=== PATIENT | male | born 1985 | race Caucasian/White ===

== ENCOUNTER → 2019-06-11 15:57 | Outpatient (ROUT) | payer BC, OTHER, SELFPAY ==
[2019-06-11 16:30] LABS: Influenza A - CEPHEID Flu A NEGATIVE (NEGATIVE); Influenza B - CEPHEID Flu B NEGATIVE (NEGATIVE)
== END ==
PROVIDERS: Family Provider Family Medicine; PCP Family Medicine; Visit Provider Family Medicine
DX: R50.9 Fever, unspecified (principal); R05 Cough
CPT/HCPCS: 87502

== ENCOUNTER → 2021-06-16 09:06 | Outpatient (CLI) | payer OTHER, SELFPAY ==
--- NOTE | 2021-06-16 | DI.CT.S_ITS ---
PROCEDURE: CT ABDOMEN W CON INDICATIONS: Unspecified abd pain TECHNIQUE: After the administration of oral and intravenous contrast, axial sections acquired from the diaphragm to the iliac crests. Coronal and sagittal reformats were performed. For radiation dose reduction, the following was used: automated exposure control, adjustment of mA and/or kV according to patient size. COMPARISON: None. FINDINGS: Image quality: Excellent. Lung bases: Unremarkable. Heart: No significant findings. Liver: No focal lesion. Gallbladder: Not distended. No calcified gallstones. Biliary ducts: Not dilated. Pancreas: No peripancreatic fluid collection. Spleen: No splenomegaly. Adrenal Glands: No nodule. Kidneys and Ureters: No hydronephrosis. Stomach and Bowel: Stomach, small bowel loops, and colon are unremarkable. Peritoneum: No abnormal intraperitoneal fluid. No free air. Ventral Wall: No hernia. Abdominal Nodes: No retroperitoneal or mesenteric adenopathy by size criteria. Vessels: Aorta and inferior vena cava are normal in size. Bones: No suspicious lesion. IMPRESSION: No significant abnormality identified. Dictated by: Ash Sanders M.D. on 06/16/2021 at 10:52 Approved by: Ash Sanders M.D. on 06/16/2021 at 10:55
== END ==
PROVIDERS: Family Provider Family Medicine; PCP Family Medicine; Referring Provider Family Medicine; Visit Provider Family Medicine
DX: R10.9 Unspecified abdominal pain (principal)
CPT/HCPCS: 74160

== ENCOUNTER 2022-12-30 05:47 | Emergency (ER) | payer OTHER, SELFPAY ==
[2022-12-30] VITALS (9 sets, daily range): BP systolic 139–166; BP diastolic 100–111; PULSE 82–105; RESP 16; TEMP 35.7; O2SAT 97–100; BMI 21.1
--- NOTE | 2022-12-30 05:59 | ED_ITS ---
HPI - General Adult <Vale Bee MD - Last Filed: 12/30/22 18:05> General Chief complaint: Extremity Problem,Nontraumatic Stated complaint: painful muscle contractions whole body 45 min Time Seen by Provider: 12/30/22 05:59 History of Present Illness HPI narrative: 37-year-old gentleman with no chronic medical history presents complaining of severe back pain with spasm now radiating down his legs causing him to be significantly anxious, hyperventilating and complaining of muscle spasm all over. He states that he works nights for the [employer]. Three days ago he was shoveling some asphalt and felt a slight twinge in his lower thoracic spine. He has been having mild pain and has been taking ibuprofen Tylenol combination with only modest relief. He was in the bathtub this evening in his he went to get out of the bath tub the pain became worse spasm significantly and then began radiating down both legs. He was able to get into his car and get to the emergency department for further evaluation. There is no specific trauma. on arrival he is significantly anxious and having difficulty explaining his overall symptoms. Related Data Previous Rx's Medication Instructions Recorded cyclobenzaprine 10 mg tablet 10 mg PO TID PRN muscle spasm #14 12/30/22 tabs hydrocodone 5 mg-acetaminophen 325 1 tab PO Q8H PRN pain #10 tabs 12/30/22 mg tablet Allergies Allergy/AdvReac Type Severity Reaction Status Date / Time Amoxicillin Allergy Unknown Uncoded 07/24/17 12:57 Review of Systems <Vale Bee MD - Last Filed: 12/30/22 18:05> Review of Systems Narrative: Pertinent positive and negative findings as per HPI Exam <Vale Bee MD - Last Filed: 12/30/22 18:05> Initial Vital Signs Initial Vital Signs: Vital Signs Temperature 96.3 F L 12/30/22 05:59 Pulse Rate 100 H 12/30/22 05:59 Respiratory Rate 16 12/30/22 05:59 Blood Pressure 143/106 H 12/30/22 05:59 Pulse Oximetry 100 12/30/22 05:59 Oxygen Delivery Method Room Air 12/30/22 05:59 General: Anxious, hyperventilating with carpal pedal spasms. He has some difficulty explaining his symptoms due to his anxiety and pain secondary to muscle spasms Well-nourished well-developed HEENT: Moist mucous membranes, normal sclera with reactive pupils, Respiratory: Lungs are clear to auscultation, no wheezing no rales no rhonchi. Full and symmetrical air movement Cardiac: Regular rate and rhythm no murmurs no bruits Abdomen: Soft, nontender, good bowel tones, no flank pain Spine: He has muscle spasm from approximately T9-L1 on the right side with no midline thoracic or lumbar pain to palpation. There is no skin abnormalities. He has subjective muscle spasms into his legs that I do not appreciate on physical exam. Both legs have full sensation and pulses distally. He is able to do straight leg raise bilaterally without pain. Skin: Warm and dry, no rashes Neurologic: Grossly neurologically intact with no obvious asymmetries or abnormalities. Normal lower extremity reflexes bilaterally Extremities: Carpal pedal spasms with cool fingertips Psych: Anxious, frightened, in pain secondary to muscle spasm <Jatinder Cheng DO - Last Filed: 12/30/22 08:34> Initial Vital Signs Initial Vital Signs: Vital Signs Temperature 96.3 F L 12/30/22 05:59 Pulse Rate 100 H 12/30/22 05:59 Respiratory Rate 16 12/30/22 05:59 Blood Pressure 143/106 H 12/30/22 05:59 Pulse Oximetry 100 12/30/22 05:59 Oxygen Delivery Method Room Air 12/30/22 05:59 Course <Vale Bee MD - Last Filed: 12/30/22 18:05> Orders Ordered: Discontinued Medications Cyclobenzaprine HCl (Cyclobenzaprine 10 Mg Tablet) 10 mg PO NOW ONE Stop: 12/30/22 08:30 Last Admin: 12/30/22 08:33 Dose: 10 mg Documented By: Hydromorphone HCl (Hydromorphone 1 Mg Inj) 0.5 mg IV NOW ONE Stop: 12/30/22 06:09 Last Admin: 12/30/22 06:15 Dose: 0.5 mg Documented By: YOHAN Sodium Chloride (Normal Saline 0.9%) 1,000 mls @ 1,000 mls/hr IV BOLUS ONE Stop: 12/30/22 07:47 Last Infusion: 12/30/22 08:45 Dose: 0 mls/hr Documented By: Admin: 12/30/22 06:56 Dose: 1,000 mls/hr Documented By: Ketorolac Tromethamine (Ketorolac 30 Mg/Ml Vial) 15 mg IV NOW ONE Stop: 12/30/22 06:09 Last Admin: 12/30/22 06:14 Dose: 15 mg Documented By: YOHAN Vital Signs Vital signs: Vital Signs - 8 hr 12/30/22 05:59 12/30/22 06:10 12/30/22 06:30 Temperature 96.3 F L Pulse Rate 100 H 89 105 H Respiratory Rate 16 Blood Pressure 143/106 H Pulse Oximetry 100 100 98 Oxygen Delivery Method Room Air 12/30/22 06:48 12/30/22 06:48 12/30/22 07:00 Temperature Pulse Rate 101 H Respiratory Rate Blood Pressure 140/100 H 139/102 H Pulse Oximetry 97 Oxygen Delivery Method 12/30/22 07:00 12/30/22 07:30 Temperature Pulse Rate 97 H 82 Respiratory Rate Blood Pressure Pulse Oximetry 99 98 Oxygen Delivery Method <Jatinder Cheng DO - Last Filed: 12/30/22 08:34> Orders Ordered: Discontinued Medications Cyclobenzaprine HCl (Cyclobenzaprine 10 Mg Tablet) 10 mg PO NOW ONE Stop: 12/30/22 08:30 Last Admin: 12/30/22 08:33 Dose: 10 mg Documented By: Hydromorphone HCl (Hydromorphone 1 Mg Inj) 0.5 mg IV NOW ONE Stop: 12/30/22 06:09 Last Admin: 12/30/22 06:15 Dose: 0.5 mg Documented By: YOHAN Sodium Chloride (Normal Saline 0.9%) 1,000 mls @ 1,000 mls/hr IV BOLUS ONE Stop: 12/30/22 07:47 Last Infusion: 12/30/22 08:45 Dose: 0 mls/hr Documented By: Admin: 12/30/22 06:56 Dose: 1,000 mls/hr Documented By: Ketorolac Tromethamine (Ketorolac 30 Mg/Ml Vial) 15 mg IV NOW ONE Stop: 12/30/22 06:09 Last Admin: 12/30/22 06:14 Dose: 15 mg Documented By: YOHAN Vital Signs Vital signs: Vital Signs - 8 hr 12/30/22 05:59 12/30/22 06:10 12/30/22 06:30 Temperature 96.3 F L Pulse Rate 100 H 89 105 H Respiratory Rate 16 Blood Pressure 143/106 H Pulse Oximetry 100 100 98 Oxygen Delivery Method Room Air 12/30/22 06:48 12/30/22 06:48 12/30/22 07:00 Temperature Pulse Rate 101 H Respiratory Rate Blood Pressure 140/100 H 139/102 H Pulse Oximetry 97 Oxygen Delivery Method 12/30/22 07:00 12/30/22 07:30 Temperature Pulse Rate 97 H 82 Respiratory Rate Blood Pressure Pulse Oximetry 99 98 Oxygen Delivery Method Medical Decision Making <Vale Bee MD - Last Filed: 12/30/22 18:05> Lab Data 12/30/22 06:00 12/30/22 06:00 Labs: Lab Results 12/30/22 12/30/22 Range/Units 06:00 06:00 WBC 9.4 (4.5-11.0) X10^3/uL RBC 6.30 H (4.5-5.9) X10^6/uL Hgb 17.9 H (13.5-17.5) g/dL Hct 52.9 (41-53) % MCV 83.9 (80-100) fL MCH 28.5 (26-34) PG MCHC 33.9 (30-36) % RDW 13.7 (11.6-14.8) % Plt Count 328 (150-400) X10^3/uL Neut % (Auto) 63.9 (50-75) % Lymph % (Auto) 23.7 L (25-40) % Anson % (Auto) 7.1 (3-14) % Eos % (Auto) 4.3 H (2-4) % Baso % (Auto) 1.0 (0-2) % Neut # (Auto) 6000 (2716-9368) /uL Lymph # (Auto) 2200 (4340-3643) /uL Anson # (Auto) 700 (0-900) /uL Eos # (Auto) 400 (0-450) /uL Baso # (Auto) 100 (0-100) /uL Sodium 139 (137-145) mmol/L Potassium 3.7 (3.4-5.1) mmol/L Chloride 98 (98-107) mmol/L Carbon Dioxide 23 (22-32) mmol/L BUN 21 H (9-20) mg/dL Creatinine 2.00 H (0.66-1.25) mg/dL Estimated GFR 44 L (>60) mL/min BUN/Creatinine Ratio 10.5 (6-22) Glucose 173 H (70-100) mg/dL Calcium 11.8 H (8.4-10.2) mg/dL Total Bilirubin 0.8 (0.2-1.3) mg/dL AST 37 (17-59) IU/L ALT 54 H (<50) IU/L Alkaline Phosphatase 81 (38-126) U/L Total Protein 10.5 H (6.3-8.2) g/dL Albumin 5.7 H (3.5-5.0) g/dL Globulin 4.8 H (1.7-4.1) g/dL Albumin/Globulin Ratio 1.2 (1.0-2.8) MDM Narrative Medical decision making narrative: CC: Muscle spasms and severe pain Complicating co-morbidities: Lower thoracic back strain worsening over the past 72 hours, significant anxiety. Data collected from: patient, significant other Medical records reviewed: Records from [facility] Emergency room visit in April of this year for chest pain and palpitations and subsequent cardiac outpatient follow-up are reviewed. Differential considered: Thoracic muscle spasm, anxiety, hyperventilation. He has no ?red flags? for epidural abscess, there has been no trauma to suggest suspect compression fracture or other bony injury Exam documented above, pertinent findings include: Significant improvement with application of a non-rebreather mask, no oxygen running. Muscle spasm paraspinous right lower thoracic area. Lab Test results independently reviewed as above. Pertinent findings: CBC shows a moderate elevation in H&H at 17.9 and 52.9 suggesting moderate hemo concentration (he does not smoke) or polycythemia Chemistries are notable for elevated creatinine at 2 with GFR at 44 slightly elevated glucose at 173 calcium is significantly elevated at 11.8, total protein albumin and globulin are all elevated Imaging studies CT abdomen with no acute process, masses no retroperitoneal bleeding no obvious kidney stones or renal abnormalities. Normal appendix Treatments: Non-rebreather mask used to help control his hyperventilation, parenteral Toradol and Dilaudid Discussion: Pleasant 37-year-old gentleman who has some significant muscle spasm right side thoracic likely from the shoveling asphalt that he had been doing almost 72 hours ago with increasing pain and spasm as he got out of his bathtub and obvious hyperventilation with carpal pedal spasm and worsening overall muscle spasm. During my initial exam a non-rebreather mask without oxygen is applied and helped significantly. The upper extremity muscle spasm and carpal pedal spasm resolved fairly quickly. He was given IV Toradol and half a dose of IV Dilaudid. Lives with significant abnormalities and concern for neoplasm or other adrenal mass or abnormality. Possible retroperitoneal bleeding or bleeding into mass is identified. Findings were reviewed with patient and his family he is agreeable to continued workup. He also points out that since his evaluation in April he is had consistently elevated heart rate via his fit bit consistently 90-120 even at rest. He has not been gaining or losing weight. He notes that his blood pressure has been elevated which is significantly unusual for him. When questioning possibility of dehydration he notes that he has been drinking large volumes of water including over the last 24 hours. Care is reviewed with Dr. Cheng at change of shift and he will assume care. Dr cheng: Received turned over. Review patient's history and physical exam. Performed my own independent focused examination. Patient has been hypertensive. His creatinine is also elevated. Heart rate has been anywhere from the upper 80s to the low 100s. He states that this heart rate issue is not necessarily new for him. He does not recollect any issues with his blood pressure his kidney function. The CT scan today shows no evidence of acute issues to include a pheochromocytoma. Had a discussion with the patient regarding all of this. Will have him contact his primary doctor to discuss further workup of his issues today. Will send home with a prescription for muscle relaxers and pain medication for symptomatic treatment. Patient is safe for discharge home. <Jatinder Cheng, DO - Last Filed: 12/30/22 08:34> Lab Data Lab results reviewed: Yes I reviewed the patient's lab results. Labs: Lab Results 12/30/22 12/30/22 Range/Units 06:00 06:00 WBC 9.4 (4.5-11.0) X10^3/uL RBC 6.30 H (4.5-5.9) X10^6/uL Hgb 17.9 H (13.5-17.5) g/dL Hct 52.9 (41-53) % MCV 83.9 (80-100) fL MCH 28.5 (26-34) PG MCHC 33.9 (30-36) % RDW 13.7 (11.6-14.8) % Plt Count 328 (150-400) X10^3/uL Neut % (Auto) 63.9 (50-75) % Lymph % (Auto) 23.7 L (25-40) % Anson % (Auto) 7.1 (3-14) % Eos % (Auto) 4.3 H (2-4) % Baso % (Auto) 1.0 (0-2) % Neut # (Auto) 6000 (5216-7382) /uL Lymph # (Auto) 2200 (7151-7422) /uL Anson # (Auto) 700 (0-900) /uL Eos # (Auto) 400 (0-450) /uL Baso # (Auto) 100 (0-100) /uL Sodium 139 (137-145) mmol/L Potassium 3.7 (3.4-5.1) mmol/L Chloride 98 (98-107) mmol/L Carbon Dioxide 23 (22-32) mmol/L BUN 21 H (9-20) mg/dL Creatinine 2.00 H (0.66-1.25) mg/dL Estimated GFR 44 L (>60) mL/min BUN/Creatinine Ratio 10.5 (6-22) Glucose 173 H (70-100) mg/dL Calcium 11.8 H (8.4-10.2) mg/dL Total Bilirubin 0.8 (0.2-1.3) mg/dL AST 37 (17-59) IU/L ALT 54 H (<50) IU/L Alkaline Phosphatase 81 (38-126) U/L Total Protein 10.5 H (6.3-8.2) g/dL Albumin 5.7 H (3.5-5.0) g/dL Globulin 4.8 H (1.7-4.1) g/dL Albumin/Globulin Ratio 1.2 (1.0-2.8) Imaging Data CT scan - abdomen/pelvis: Radiologist's Impression: PROCEDURE:? CT ABDOMEN PELVIS W CON ? INDICATIONS:? retroperitoneal pain, acute kidney injury, hypercalcemia, ? TECHNIQUE:? After the administration of intravenous contrast, axial sections acquired from the lung bases to the pubic symphysis.? Coronal and sagittal reformats were performed.? For radiation dose reduction, the following was used:? automated exposure control, adjustment of mA and/or kV according to patient size.? ? COMPARISON:? None. ? FINDINGS:? Image quality:? Excellent.? ? Lung bases:? Unremarkable. Heart:? No significant findings. ? ABDOMEN: Liver:? Unremarkable.? ? Gallbladder:? Unremarkable.? ? Biliary ducts:? Unremarkable.? ? Pancreas:? Unremarkable.? ? Spleen:? Unremarkable.? ? Adrenal Glands:? Unremarkable.? ? Kidneys and Ureters:? Unremarkable.? ? ? Stomach and Bowel:? Stomach, small bowel loops, and colon are unremarkable.? Normal appendix. Peritoneum:? No abnormal intraperitoneal fluid.? No free air.? ? Ventral Wall: ? No hernias.? Abdominal Nodes:? No retroperitoneal or mesenteric adenopathy by size criteria.? Vessels:? Aorta and inferior vena cava are normal in size.? ? PELVIS: Pelvic Organs:? Unremarkable.? ? Bladder:? Unremarkable.? ? Pelvic Nodes: No enlarged lymph nodes.? Miscellaneous: No hernias are seen. ? ? ? Bones:? Unremarkable.? IMPRESSION:? 1. No acute process. 2. Normal appendix.? MDM Narrative Medical decision making narrative: CC: Muscle spasms and severe pain Complicating co-morbidities: Lower thoracic back strain worsening over the past 72 hours, significant anxiety. Data collected from: patient, significant other Medical records reviewed: Records from [facility] Emergency room visit in April of this year for chest pain and palpitations and subsequent cardiac outpatient follow-up are reviewed. Differential considered: Thoracic muscle spasm, anxiety, hyperventilation. He has no ?red flags? for epidural abscess, there has been no trauma to suggest suspect compression fracture or other bony injury Exam documented above, pertinent findings include: Significant improvement with application of a non-rebreather mask, no oxygen running. Muscle spasm paraspinous right lower thoracic area. Lab Test results independently reviewed as above. Pertinent findings: CBC shows a moderate elevation in H&H at 17.9 and 52.9 suggesting moderate hemo concentration (he does not smoke) or polycythemia Chemistries are notable for elevated creatinine at 2 with GFR at 44 slightly elevated glucose at 173 calcium is significantly elevated at 11.8, total protein albumin and globulin are all elevated Imaging studies Consultations: Treatments: Non-rebreather mask used to help control his hyperventilation, parenteral Toradol and Dilaudid Re-evaluations: Discussion: Pleasant 37-year-old gentleman who has some significant muscle spasm right side thoracic likely from the shoveling asphalt that he had been doing almost 72 hours ago with increasing pain and spasm as he got out of his bathtub and obvious hyperventilation with carpal pedal spasm and worsening overall muscle spasm. During my initial exam a non-rebreather mask without oxygen is applied and helped significantly. The upper extremity muscle spasm and carpal pedal spasm resolved fairly quickly. He was given IV Toradol and half a dose of IV Dilaudid. Lives with significant abnormalities and concern for neoplasm or other adrenal mass or abnormality. Possible retroperitoneal bleeding or bleeding into mass is identified. Findings were reviewed with patient and his family he is agreeable to continued workup. He also points out that since his evaluation in April he is had consistently elevated heart rate via his fit bit consistently 90-120 even at rest. He has not been gaining or losing weight. He notes that his blood pressure has been elevated which is significantly unusual for him. When questio romina possibility of dehydration he notes that he has been drinking large volumes of water including over the last 24 hours. Care is reviewed with Dr. Cheng at change of shift and he will assume care. Dr cheng: Received turned over. Review patient's history and physical exam. Performed my own independent focused examination. Patient has been hypertensive. His creatinine is also elevated. Heart rate has been anywhere from the upper 80s to the low 100s. He states that this heart rate issue is not necessarily new for him. He does not recollect any issues with his blood pressure his kidney function. The CT scan today shows no evidence of acute issues to include a pheochromocytoma. Had a discussion with the patient regarding all of this. Will have him contact his primary doctor to discuss further workup of his issues today. Will send home with a prescription for muscle relaxers and pain medication for symptomatic treatment. Patient is safe for discharge home. Discharge Plan Departure Patient Disposition: Home Clinical Impression: Strain of thoracic back region, Muscle spasm of both lower legs, Acute kidney injury, Hypertension Instructions: DI for Back Strain or Sprain Activity Restrictions/Additional Instructions: Continue to take any medications as directed. I recommend that you purchase a blood pressure cuff and start taking your blood pressure at home like we discussed. I also recommend that you contact your primary doctor for a follow- up. Return to the emergency department for new symptoms. Prescriptions: New cyclobenzaprine 10 mg tablet 10 mg PO TID PRN (Reason: muscle spasm) Qty: 14 0RF hydrocodone-acetaminophen 5-325 mg tablet 1 tab PO Q8H PRN (Reason: pain) Qty: 10 0RF Referrals: Patricio Chadwick MD [Primary Care Provider] - Stand Alone Forms: Patient Portal/API, Work Release Note
--- NOTE | 2022-12-30 06:09 | PC.NURSE ---
pt c/o muscle spasms in all extremities that started this am pt unable to provide a good hx of previous events, did hurt his back a few days ago
[2022-12-30 06:14] LABS: Add Manual Diff / Slide Review NO; Basophils Absolute Auto 100 /uL (0-100); Eosinophils Absolute Auto 400 /uL (0-450); Eosinophils Percent Auto 4.3 % (2-4); Hematocrit 52.9 % (41-53); Hemoglobin 17.9 g/dL (13.5-17.5); Lymphocytes Absolute Auto 2200 /uL (1100-4500); Lymphocytes Percent Auto 23.7 % (25-40); Mean Corpuscular HGB Conc 33.9 % (30-36); Mean Corpuscular Hemoglobin 28.5 PG (26-34); Mean Corpuscular Volume 83.9 fL (80-100); Monocytes Absolute Auto 700 /uL (0-900); Monocytes Percent Auto 7.1 % (3-14); Neutrophils Absolute Auto 6000 /uL (1500-7000); Neutrophils Percent Auto 63.9 % (50-75); Platelet Count 328 X10^3/uL (150-400); Red Cell Distribution Width 13.7 % (11.6-14.8); White Blood Cell Count 9.4 X10^3/uL (4.5-11.0)
[2022-12-30] MEDS: KETOROLAC 30 MG/ML VIAL 15 MG IV (06:14)
[2022-12-30] MEDS: HYDROMORPHONE 1 MG INJ 0.5 MG IV (06:15)
[2022-12-30 06:19] LABS: Alanine Aminotransferase 54 IU/L (<50); Albumin 5.7 g/dL (3.5-5.0); Alkaline Phosphatase 81 U/L (38-126); Aspartate Aminotransferase 37 IU/L (17-59); BUN Creatinine Ratio 10.5 (6-22); Bilirubin Total 0.8 mg/dL (0.2-1.3); Blood Urea Nitrogen 21 mg/dL (9-20); Calcium 11.8 mg/dL (8.4-10.2); Carbon Dioxide 23 mmol/L (22-32); Chloride 98 mmol/L (98-107); Estimated Glomerular Filt Rate 44 mL/min (>60); Glucose 173 mg/dL (70-100); HEMOLYSIS < 15 (0-50); Potassium 3.7 mmol/L (3.4-5.1); Sodium 139 mmol/L (137-145)
[2022-12-30 06:26] LABS: Albumin Globulin Ratio 1.2 (1.0-2.8); Globulin 4.8 g/dL (1.7-4.1); Total Protein 10.5 g/dL (6.3-8.2)
[2022-12-30] MEDS: SODIUM CHLORIDE 0.9% 1,000 ML 1000 ML IV (06:56)
--- NOTE | 2022-12-30 07:29 | DI.CT.S_ITS ---
PROCEDURE: CT ABDOMEN PELVIS W CON INDICATIONS: retroperitoneal pain, acute kidney injury, hypercalcemia, TECHNIQUE: After the administration of intravenous contrast, axial sections acquired from the lung bases to the pubic symphysis. Coronal and sagittal reformats were performed. For radiation dose reduction, the following was used: automated exposure control, adjustment of mA and/or kV according to patient size. COMPARISON: None. FINDINGS: Image quality: Excellent. Lung bases: Unremarkable. Heart: No significant findings. ABDOMEN: Liver: Unremarkable. Gallbladder: Unremarkable. Biliary ducts: Unremarkable. Pancreas: Unremarkable. Spleen: Unremarkable. Adrenal Glands: Unremarkable. Kidneys and Ureters: Unremarkable. Stomach and Bowel: Stomach, small bowel loops, and colon are unremarkable. Normal appendix. Peritoneum: No abnormal intraperitoneal fluid. No free air. Ventral Wall: No hernias. Abdominal Nodes: No retroperitoneal or mesenteric adenopathy by size criteria. Vessels: Aorta and inferior vena cava are normal in size. PELVIS: Pelvic Organs: Unremarkable. Bladder: Unremarkable. Pelvic Nodes: No enlarged lymph nodes. Miscellaneous: No hernias are seen. Bones: Unremarkable. IMPRESSION: 1. No acute process. 2. Normal appendix. Dictated by: Jasmyne Yang M.D. on 12/30/2022 at 7:51 Approved by: Jasmyne Yang M.D. on 12/30/2022 at 7:52
[2022-12-30] MEDS: CYCLOBENZAPRINE 10 MG TABLET PO (08:33)
== END 2022-12-30 08:46 | disposition home or self-care (01) ==
PROVIDERS: Emergency Provider Emergency Medicine; Family Provider Family Medicine; PCP Family Medicine
DX: S29.012A Strain of muscle and tendon of back wall of thorax, initial encounter (principal); M62.831 Muscle spasm of calf; N17.9 Acute kidney failure, unspecified; I10 Essential (primary) hypertension
CPT/HCPCS: 36415; 74177; 80053; 85025; 96361; 96374; 96375; 99284; J1170; J1885

== ENCOUNTER → 2024-06-10 16:02 | Outpatient (ROUT) | payer OTHER, SELFPAY ==
[2024-06-10 16:47] LABS: Influenza A - CEPHEID Flu A NEGATIVE (NEGATIVE); Influenza B - CEPHEID Flu B NEGATIVE (NEGATIVE); Respiratory Syncytial Virus Negative (Negative)
[2024-06-10 16:48] LABS: COVID-19 CEPHEID 4-PLEX PCR Negative (Negative)
== END ==
PROVIDERS: Family Provider Family Medicine; PCP Family Medicine; Visit Provider Family Medicine
DX: J02.9 Acute pharyngitis, unspecified (principal)
CPT/HCPCS: 0241U